=== PATIENT | male | born 1940 | race Caucasian/White ===

== ENCOUNTER → 2018-01-06 | Outpatient (CLI) | payer OTHER ==
[~2018-01-06] VITALS: Ht 172.7 cm; Wt 82.5 kg
[~2018-01-06] MED LIST: ASPIR 8181 M1 PO; FISH OIL 1,0001 EAC7 PO; FLONASE16 G1 BOTH NARES; FLOVENT 22120 INHALA IH; NAPROXEN250 MG PO; PRESERVISION T1 EACH PO; PRILOSEC20 MG PO; PROAIR RESPICL90 MCG IH; REFRESH TEARS15 ML BOTH EYES; TOPROL XL25 MG PO; VITAMIN B-12500 MC5 SL; VITAMIN D2000 UNIT PO; WELLBUTRIN100 MG PO
== END | disposition home or self-care (01) ==
LOC: AMB 10:57
PROC: 0DD58ZX Extraction of Esophagus, Via Natural or Artificial Opening Endoscopic, Diagnostic (ICD-10-PCS; principal; 2018-01-06)
DX: B37.81 Candidal esophagitis (principal); K44.9 Diaphragmatic hernia without obstruction or gangrene; K21.0 Gastro-esophageal reflux disease with esophagitis; M19.90 Unspecified osteoarthritis, unspecified site; J45.909 Unspecified asthma, uncomplicated; I48.91 Unspecified atrial fibrillation; Z86.010 Personal history of colon polyps; Z79.82 Long term (current) use of aspirin; Z82.49 Family history of ischemic heart disease and other diseases of the circulatory system; Z80.42 Family history of malignant neoplasm of prostate; Z87.891 Personal history of nicotine dependence
CPT/HCPCS: 88108; 88313; 93005